=== PATIENT | male | born 1980 | race Caucasian/White ===

== ENCOUNTER 2024-08-04 09:58 | Emergency (ER) | payer BC, SELFPAY ==
[2024-08-04] VITALS (7 sets, daily range): BP systolic 112–162; BP diastolic 74–99; PULSE 80–119; RESP 12–16; TEMP 36.8; O2SAT 96–98; BMI 30.8
--- NOTE | 2024-08-04 09:59 | ECG_ITS ---
APPROVED REPORT Exam: Resting ECG HR:121 bpm ECG Measurements Heart Rate 121 AXES WV 148 P 30 QRSd 105 QRS 30 QT 324 T 15 QTc [address] DEVIATION AND MODERATE T-WAVE ABNORMALITY, CONSIDER ANTERIOR ISCHEMIA [-0.1+ mV T-WAVE IN V3/V4] ABNORMAL ECG No STEMI Electronically signed by : SHAHID DAVE, 08/04/2024 15:20:40
--- NOTE | 2024-08-04 10:00 | PC.NURSE ---
Dr Caballero states do not need type & Desmond lacy from the lab who is at bedside notified of this.
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
[2024-08-04 10:15] LABS: Basophils % 0.4 % (0.1-2.0); Eosinophils # 0.1 K/mm3 (0.0-0.4); Eosinophils % 0.7 % (0.1-12.0); Hematocrit 37.1 % (42.0-52.0); Hemoglobin 12.8 g/dL (14.1-18.0); Lymphocytes # 0.5 K/mm3 (0.7-4.5); Lymphocytes % 6.6 % (10-50); Mean Corpuscular HGB Conc 34.5 g/dL (31.8-35.4); Mean Corpuscular Hemoglobin 30.5 pg (27.0-31.2); Mean Corpuscular Volume 88.5 fl (80-94); Mean Platelet Volume 9.4 fl (7.4-10.4); Monocytes # 0.7 K/mm3 (0.1-1.0); Monocytes % 8.8 % (1.7-9.3); Neutrophils # 6.7 K/mm3 (1.8-7.8); Neutrophils % 83.1 % (37.0-80.0); Platelet Count 236 K/mm3 (142-424); Red Blood Count 4.19 M/mm3 (4.60-6.20); Red Cell Distribution Width 12.8 % (11.5-17.5); White Blood Count 8.1 K/mm3 (4.8-10.8)
[2024-08-04] MEDS: KETOROLAC 30MG/ML VIAL 30 MG IV (10:23)
[2024-08-04] MEDS: LACTATED RINGERS 1000ML 1,000 ML 999 ML IV (10:23)
[2024-08-04 10:28] LABS: Activated Partial Thrombo Time 24.8 seconds (22.8-30.6); Prothrombin Time 11.2 seconds (10.1-12.5)
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
[2024-08-04 10:34] LABS: Ethyl Alcohol < 10 mg/dl (0-10)
[2024-08-04 10:50] LABS: Alanine Aminotransferase 35 U/L (12-78); Albumin Level 4.9 g/dl (3.5-5.0); Aspartate Amino Transferase 32 U/L (17-59); Blood Urea Nitrogen 8 mg/dl (9-20); Carbon Dioxide 25 mmol/L (22.0-30.0); Chloride 104 mmol/L (98-107); Creatinine Clearance Estimated 134 mL/min (50-200); Estimated Glomerular Filt Rate 82 ml/min (>60); GFR (African American) 100 ML/MIN (>60); Globulin 2.4 g/dL (1.3-3.2); Glucose 98 mg/dl (74-100); Lipase 35 U/L (23-300); Sodium 137 mmol/L (136-145); Total Protein,Serum 7.3 g/dl (6.3-8.2)
[2024-08-04 11:20] LABS: Troponin I < 0.01 ng/ml (0.00-0.034)
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
[2024-08-04 11:41] LABS: Alkaline Phosphatase 67 U/L (38-126); Bilirubin,Total 0.4 mg/dl (0.2-1.3)
[2024-08-04 12:08] LABS: Microscopic, Urine URINE MICROSCOPIC (MICROSCOPIC)
[2024-08-04 12:09] LABS: Appearance,Urine CLEAR (Clear); Bilirubin,Urine Negative (Negative); Blood, Urine Negative (Negative); Color,Urine YELLOW (Yellow); Glucose,Urine (UA) Negative (Negative); Ketones,Urine Negative (Negative); Leukocyte Esterase,Urine 1+ (Negative); Nitrate,Urine Negative (Negative); PH,Urine 5.5 (5.0-8.5); Protein,Urine Negative (Negative); Specific Gravity, Urine 1.015 (1.005-1.030); Urobilinogen,Urine 0.2 EU/dl (0.2)
[2024-08-04] MEDS: RINGERS SOLUTION,LACTATED 500 ML 999 ML IV (12:11)
[2024-08-04] MEDS: KCl 10mEq/100ml 100 ML 100 MEQ IV (12:11)
[2024-08-04] MEDS: POTASSIUM CHLORIDE 20MEQ TAB 60 MEQ PO (12:11)
[2024-08-04 12:46] LABS: Squamous Epithelial Cell,Urine Occasional #/hpf (0-5)
[2024-08-04 12:53] LABS: Amphetamine/Metha Screen,Urine Negative ng/ml (<1000); Benzodiazepines Screen,Urine Negative ng/ml (<200)
[2024-08-04 12:54] LABS: Barbiturates Screen,Urine Negative ng/ml (<200)
[2024-08-04 12:55] LABS: Cannabinoid Screen,Urine Negative ng/ml (<50); Cocaine Screen,Urine Negative ng/ml (<300)
[2024-08-04 12:56] LABS: Methadone Screen,Urine Positive ng/ml (<300)
[2024-08-04 12:57] LABS: Opiate Screen,Urine Negative ng/ml (<300); Phencyclidine Screen,Urine Negative ng/ml (<25)
== END 2024-08-04 13:33 | disposition home or self-care (01) ==
PROVIDERS: Emergency Provider Emergency Medicine
DX: E87.6 Hypokalemia (principal); G89.11 Acute pain due to trauma; R68.84 Jaw pain; V89.2XXA Person injured in unspecified motor-vehicle accident, traffic, initial encounter
CPT/HCPCS: 70450; 70486; 71045; 72125; 72170; 80053; 80307; 80320; 81001; 83690; 84484; 85025; 85610; 85730; 87086; 93005; 96361; 96374; 96375; 99291; G0480; J1885; J3480; J7120